=== PATIENT | female | born 1965 | race Caucasian/White ===

== ENCOUNTER 2017-02-02 08:05 | Day surgery (SDC) | payer BC ==
[~2017-02-02 08:05] MED LIST: Lactated Ringers 1,000 ML IV SCH; Lidocaine 1%/Sod Bicarbonate in NS 8.4% 1 ML Syringe PRN; Sodium Chloride 0.9% 10 ML Syringe FLUSH PRN
--- NOTE | 2017-02-02 08:27 | PCM.PREANE ---
Preanesthetic Assessment - Procedure Proposed Procedure: Screening colonoscopy - Anesthesia/Transfusion/Family Hx Anesthesia History: Prior Anesthesia Without Reaction Type of Anesthesia Reaction: Excessive Nausea/Vomiting Family History of Anesthesia Reaction: No Transfusion History: No Prior Transfusion(s) Intubation History: Unknown - Review of Systems General: No Symptoms Pulmonary: No Symptoms Cardiovascular: Other (HLD) Gastrointestinal: No Symptoms Neurological: No Symptoms, Other (brain aneurysm 6 years ago (no deficits)) Other: Reports: Anxiety - Physical Assessment NPO Status Date: 02/01/17 NPO Status Time: 21:30 Pulse: 68 O2 Sat by Pulse Oximetry: 97 Respiratory Rate: 16 Blood Pressure: 148/83 Temperature: 36.3 C Height: 1.68 m Weight: 95 kg ASA Class: 2 Mental Status: Alert & Oriented x3 Airway Class: Mallampati = 1 Dentition: Reports: Normal Dentition Thyro-Mental Finger Breadths: 3 Mouth Opening Finger Breadths: 3 ROM/Head Extension: Full Lungs: Clear to Auscultation, Normal Respiratory Effort Cardiovascular: Regular Rate, Regular Rhythm - Allergies Allergies/Adverse Reactions: Allergies Allergy/AdvReac Type Severity Reaction Status Date / Time No Known Allergies Allergy Verified 02/01/17 15:32 - Blood Blood Available: No Product(s) Available: None - Anesthesia Plan Pre-Op Medication Ordered: None - Acknowledgements Anesthesia Type Planned: MAC Pt an Appropriate Candidate for the Planned Anesthesia: Yes Alternatives and Risks of Anesthesia Discussed w Pt/Guardian: Yes Pt/Guardian Understands and Agrees with Anesthesia Plan: Yes PreAnesthesia Questionnaire HEENT History: Reports: Allergic Rhinitis, Hard of Hearing, Otitis Media Other HEENT History: eustachian tube dysfuction , serous otits media, wears glasses Cardiovascular History: Reports: High Cholesterol, Other (See Below) Other Cardiovascular History: lower leg edema Respiratory History: Reports: None Gastrointestinal History: Reports: Other (See Below) Other Gastrointestinal History: RLQ pain Other Genitourinary History: renal cyst Other OB/BYN History: 2 vaginal deliveries, R ovarian cyst Other Musculoskeletal History: degenerative joint disease Other Neuro History: PErevious Cerebral aneurysm clipping Psychiatric History: Reports: Anxiety, Depression, Other (See Below) Other Psychiatric History: insomnia Endocrine/Metabolic History: Reports: Other (See Below) Other Endocrine/Metabolic History: hot flashes Hematologic History: Reports: None Immunologic History: Reports: None Oncologic (Cancer) History: Reports: None Dermatologic History: Reports: None - Past Surgical History Respiratory Surgical History: Reports: None Female Surgical History: Reports: Hysterectomy, Oophorectomy Musculoskeletal Surgical History: Reports: Knee Replacement, Shoulder Surgery Oncologic Surgical History: Reports: None Dermatological Surgical History: Reports: None - SUBSTANCE USE Smoking Status *Q: Never Smoker Days Per Week of Alcohol Use: 0 Number of Drinks Per Day: 0 Total Drinks Per Week: 0 Recreational Drug Use History: No - HOME MEDS Home Medications: Home Meds Citalopram [Citalopram HBr] 10 mg PO DAILY 05/15/14 [History] Fluticasone Propionate [Flonase] 2 spray NASBOTH DAILY PRN 02/01/17 [History] Loratadine/Pseudoephedrine [Claritin-D 12 Hour] 1 tab PO DAILY PRN 02/01/17 [ History] Multivitamin [Daily Tabitha] 1 tab PO DAILY 02/01/17 [History] Progesterone,Micronized [Progesterone] 1 cap PO DAILY 02/01/17 [History] atorvaSTATin Calcium [Atorvastatin Calcium] 10 mg PO DAILY 02/01/17 [History] - CURRENT (IN HOUSE) MEDS Current Meds: Current Medications Lactated Ringer's (Ringers, Lactated) 1,000 mls @ 125 mls/hr IV ASDIRECTED KHAI Stop: 02/02/17 23:00 Lidocaine/Sodium Bicarbonate (Buffered Lidocaine 1% In Ns 8.4%) 0.25 ml .XX ONETIME PRN PRN Reason: Prior to IV Start Stop: 02/02/17 18:00 Sodium Chloride (Saline Flush) 10 ml FLUSH ASDIRECTED PRN PRN Reason: Keep Vein Open Stop: 02/02/17 18:00
[2017-02-02] MEDS ORDERED: Propofol 200 MG/20 ML SDV ONE ×2 (08:40→09:19)
[2017-02-02] MEDS ORDERED: fentaNYL 100 MCG/2 ML SDV ONE (08:41)
--- NOTE | 2017-02-02 09:13 | PCM.OPNOTE ---
- General Post-Op/Procedure Note Date of Surgery/Procedure: 02/02/17 Operative Procedure(s): Colonoscopy with cold forceps sigmoid polypectomy 2 Findings: 1. Anal tags and internal hemorrhoids 2. 2 diminutive sigmoid polyps Pre Op Diagnosis: Screening colonoscopy Post-Op Diagnosis: 1. Uncomplicated internal hemorrhoids with anal tags. 2. 2 sigmoid diminutive polyps Anesthesia Technique: MAC, Moderate Sedation Primary Surgeon: Marty Smith Pathology: 2 Polyps EBL in mLs: 0 Complications: None Condition: Good Free Text/Narrative:: After adequate IV sedation and analgesia was obtained with monitoring the patient was placed on her left side. Perianal inspection revealed anal tags with internal hemorrhoids. Digital rectal examination was otherwise unremarkable. A lubricated colonoscope was inserted into the rectum and advanced to the cecum without difficulty. The bowel preparation was excellent. The cecum right colon transverse and descending colons were unremarkable. There were no inflammatory changes or mass lesions seen. There were 2 diminutive polyps in the sigmoid colon which were removed with cold forceps. The biopsy areas were hemostatic and the specimens were retrieved. The sigmoid was otherwise unremarkable. The rectum in both views was unremarkable. Photographs were taken for the patient and for the medical record. Air was removed as I finished the procedure which she tolerated well. There were no procedural complications.
[2017-02-02 09:18] VITALS: BP 120/70
--- NOTE | 2017-02-02 09:18 | PCM48HPAN ---
Post Anesthesia Note - EVALUATION WITHIN 48HRS OF ANESTHETIC Vital Signs in Normal Range: Yes Patient Participated in Evaluation: Yes Respiratory Function Stable: Yes Airway Patent: Yes Cardiovascular Function Stable: Yes Hydration Status Stable: Yes Pain Control Satisfactory: Yes Nausea and Vomiting Control Satisfactory: Yes Mental Status Recovered: Yes - COMMENTS/OBSERVATIONS Free Text/Narrative:: no c/o, rests quietly, VSS
== END 2017-02-02 09:45 | disposition home or self-care (01) ==
LOC: JD.SDS 08:05
PROVIDERS: ATTEND Surgery
DX: Z12.11 Encounter for screening for malignant neoplasm of colon (principal); D12.5 Benign neoplasm of sigmoid colon; K64.4 Residual hemorrhoidal skin tags; K64.8 Other hemorrhoids; F41.9 Anxiety disorder, unspecified; E78.00 Pure hypercholesterolemia, unspecified; F32.9 Major depressive disorder, single episode, unspecified; Z79.899 Other long term (current) drug therapy; Z90.710 Acquired absence of both cervix and uterus; Z90.721 Acquired absence of ovaries, unilateral; Z96.659 Presence of unspecified artificial knee joint; Z98.890 Other specified postprocedural states
CPT/HCPCS: 45380; J3010; J7120; 00810; J2704

== ENCOUNTER 2018-02-02 06:18 | Day surgery (SDC) | payer BC ==
[~2018-02-02 06:18] MED LIST changes: +Lidocaine 1%/Sod Bicarbonate in NS 8.4% 1 ML Syringe IDERM PRN; -Lidocaine 1%/Sod Bicarbonate in NS 8.4% 1 ML Syringe PRN
[2018-02-02] MEDS ORDERED: Lidocaine 1% 4 ML ONE (06:25)
[2018-02-02] MEDS ORDERED: Midazolam 1 MG/ML 2 ML SDV ONE (06:26)
[2018-02-02] MEDS ORDERED: Propofol 200 MG/20 ML SDV ONE (06:26)
[2018-02-02] MEDS ORDERED: fentaNYL 100 MCG/2 ML SDV ONE (06:26)
--- NOTE | 2018-02-02 06:42 | PCM.PREANE ---
Preanesthetic Assessment - Anesthesia/Transfusion/Family Hx Anesthesia History: Prior Anesthesia Without Reaction Type of Anesthesia Reaction: Other (see below) (one time felt crappy after) Family History of Anesthesia Reaction: No Transfusion History: No Prior Transfusion(s) Intubation History: Unknown - Review of Systems General: No Symptoms Pulmonary: No Symptoms Cardiovascular: No Symptoms Gastrointestinal: No Symptoms Neurological: No Symptoms Other: Reports: Anxiety - Physical Assessment NPO Status Date: 02/01/18 NPO Status Time: 22:00 Pulse: 66 O2 Sat by Pulse Oximetry: 97 Respiratory Rate: 16 Blood Pressure: 153/84 Temperature: 97 F Height: 5 ft 6 in Weight: 98.883 kg ASA Class: 2 Mental Status: Alert & Oriented x3 Airway Class: Mallampati = 1 Dentition: Reports: Normal Dentition Thyro-Mental Finger Breadths: 3 Mouth Opening Finger Breadths: 3 ROM/Head Extension: Full Lungs: Clear to Auscultation, Normal Respiratory Effort Cardiovascular: Regular Rate, Regular Rhythm - Lab Values: Laboratory Last Values MRSA (PCR) Negative 01/31/18 10:07 - Allergies Allergies/Adverse Reactions: Allergies Allergy/AdvReac Type Severity Reaction Status Date / Time No Known Allergies Allergy Verified 02/01/18 13:12 - Blood Blood Available: No - Acknowledgements Anesthesia Type Planned: MAC Pt an Appropriate Candidate for the Planned Anesthesia: Yes Alternatives and Risks of Anesthesia Discussed w Pt/Guardian: Yes Pt/Guardian Understands and Agrees with Anesthesia Plan: Yes PreAnesthesia Questionnaire HEENT History: Reports: Allergic Rhinitis, Hard of Hearing, Otitis Media Other HEENT History: eustachian tube dysfuction , serous otits media, wears glasses Cardiovascular History: Reports: High Cholesterol, Other (See Below) Respiratory History: Reports: None Gastrointestinal History: Reports: Other (See Below) Other Genitourinary History: renal cyst, hot flashes, vaginal atrophy, vaginal discharge 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 (See Below) Other OB/BYN History: 2 vaginal deliveries, R ovarian cyst, vaginal candidiasis Musculoskeletal History: Reports: Other (See Below) Other Musculoskeletal History: degenerative joint disease, muscle pain, knee surgeries, right shoulder surgery Other Neuro History: previous Cerebral aneurysm clipping, headaches Psychiatric History: Reports: Anxiety, Depression, Other (See Below) Other Psychiatric History: insomnia Endocrine/Metabolic History: Reports: Obesity/BMI 30+, Other (See Below) Other Endocrine/Metabolic History: hot flashes Hematologic History: Reports: None Immunologic History: Reports: None Oncologic (Cancer) History: Reports: None Dermatologic History: Reports: Other (See Below) Other Dermatologic History: rash - Past Surgical History Head Surgeries/Procedures: Reports: Other (See Below) (aneurysm repair) Respiratory Surgical History: Reports: None GI Surgical History: Reports: Colonoscopy Female Surgical History: Reports: Hysterectomy, Oophorectomy Endocrine Surgical History: Reports: None Neurological Surgical History: Reports: None Musculoskeletal Surgical History: Reports: Arthroscopic Procedure, Shoulder Surgery Oncologic Surgical History: Reports: None Dermatological Surgical History: Reports: None - SUBSTANCE USE Smoking Status *Q: Never Smoker Tobacco Use Within Last Twelve Months: No Second Hand Smoke Exposure: No Days Per Week of Alcohol Use: 1 Recreational Drug Use History: No - HOME MEDS Home Medications: Home Meds Fluticasone Propionate [Flonase] 2 spray NASBOTH DAILY PRN 02/01/17 [History] Loratadine/Pseudoephedrine [Claritin-D 12 Hour] 1 tab PO DAILY PRN 02/01/17 [ History] Progesterone,Micronized [Progesterone] 1 cap PO DAILY 02/01/17 [History] Citalopram Hydrobromide [Celexa] 10 mg PO DAILY 02/01/18 [History] Estriol 1 dose VAG Q72H 02/01/18 [History] LORazepam 0.25 - 0.5 mg PO BID PRN 02/01/18 [History] Acetaminophen/HYDROcodone [Ball 325-5 MG] 1 - 2 tab PO Q6H PRN #20 tablet 02/02 [Rx] - CURRENT (IN HOUSE) MEDS Current Meds: Current Medications Lactated Ringer's (Ringers, Lactated) 1,000 mls @ 125 mls/hr IV ASDIRECTED KHAI Stop: 02/02/18 18:00 Lidocaine/Sodium Bicarbonate (Buffered Lidocaine 1% In Ns 8.4%) 0.25 ml IDERM ONETIME PRN PRN Reason: Prior to IV Start Stop: 02/02/18 18:00 Sodium Chloride (Saline Flush) 10 ml FLUSH ASDIRECTED PRN PRN Reason: Keep Vein Open Stop: 02/02/18 18:00 Discontinued Medications Fentanyl (Sublimaze) Confirm Administered Dose 100 mcg .ROUTE .STK-MED ONE Stop: 02/02/18 06:27 Lidocaine HCl (Xylocaine-Mpf 1%) Confirm Administered Dose 4 mls @ as directed .ROUTE .STK-MED ONE Stop: 02/02/18 06:26 Midazolam HCl (Versed 1 Mg/Ml) Confirm Administered Dose 2 mg .ROUTE .STK-MED ONE Stop: 02/02/18 06:27 Propofol (Diprivan 20 Ml) Confirm Administered Dose 200 mg .ROUTE .STK-MED ONE Stop: 02/02/18 06:27
[2018-02-02] MEDS ORDERED: Lidocaine 1% 30 ML SDV ONE (06:44)
[2018-02-02] MEDS ORDERED: Ondansetron 4 MG/2 ML SDV IVPUSH PRN (07:23)
[2018-02-02] MEDS: Bupivacaine 0.25% 10 ML SDV ONE ×3 (07:30→07:41)
[2018-02-02] MEDS: Triamcinolone Acetonide 40 MG/ML 1 ML MDV ONE ×2 (07:40→07:41)
[2018-02-02 08:00] VITALS: BP 134/74
--- NOTE | 2018-02-02 08:00 | PCM48HPAN ---
Post Anesthesia Note - EVALUATION WITHIN 48HRS OF ANESTHETIC Vital Signs in Normal Range: Yes Patient Participated in Evaluation: Yes Respiratory Function Stable: Yes Airway Patent: Yes Cardiovascular Function Stable: Yes Hydration Status Stable: Yes Pain Control Satisfactory: Yes Nausea and Vomiting Control Satisfactory: Yes Mental Status Recovered: Yes Pulse Rate: 64 SaO2: 96 Resp Rate: 16 Temperature: 97 F Blood Pressure: 134/74
--- NOTE | 2018-02-09 06:59 | PCM.OPNOTE ---
- General Post-Op/Procedure Note Date of Surgery/Procedure: 02/02/18 Operative Procedure(s): right thumb, middle, ring finger a1 tunde releases with bilateral thumb carpometacarpal joint injections Pre Op Diagnosis: right thumb, middle and ring finger stenosing tenosynovitis Post-Op Diagnosis: Same Anesthesia Technique: Local, MAC Primary Surgeon: Wilbur Thapa Anesthesia Provider: Anahy Aparicio Rn Dermatology: Zakia Pandey in mLs: 5 Complications: None Condition: Good
--- NOTE | 2018-02-13 10:29 | OR ---
DATE OF OPERATION: 02/02/2018 SURGEON: Wilbur Thapa MD OPERATION PERFORMED: Right thumb, middle, and ring finger A1 tunde releases; bilateral thumb carpometacarpal joint injection. 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 ANESTHESIA: Local MAC. ANESTHESIA PROVIDER: Anahy Aparicio CRNA. GLOBAL POSITION SYSTEM TECHNICIAN: Zakia Pandey PA-C. ESTIMATED BLOOD LOSS: 5 mL. COMPLICATIONS: None. CONDITION: Stable. DESCRIPTION OF PROCEDURE: The patient was identified in the preoperative holding area. Proper site was marked and identified by the surgeon. The patient was taken back to the operating theater where after adequate anesthesia, the patient's right upper extremity was sterilely prepped and draped in the usual sterile fashion. OR time-out was performed. The patient did not receive antibiotic and not indicated for soft tissue hand procedure. At this time, the right upper extremity was exsanguinated. An Esmarch was used as a tourniquet on the forearm. Lidocaine 1% without epinephrine and 0.25% Marcaine without epinephrine used to anesthetize the incisional sites over the A1 pulleys of the thumb, middle, and ring fingers. At this time, incision was then made over the ring finger. Blunt dissection was taken down to the A1 tunde. Retractors were placed into the radial ulnar side to protect the neurovascular bundles. [place] blade was then used to resect the A1 tunde. It was found to be adequately released both proximally and distally. At this time, attention was turned to the middle finger. Again, incision was made over the A1 tunde and again protected the neurovascular bundle and A1 tunde was released using a [place] blade. The A1 tunde was then released in a similar fashion. At this time, they were all found to be adequately released. There were no signs of tendinous adhesions and all these were adequately irrigated with normal saline and nylon suture was used for closure of the skin. At this time, bilateral thumb carpometacarpal joint injections were done using 1 mL of 40 mg Kenalog and 1 mL of 0.25% Marcaine. She tolerated all these procedures well and sent to PACU in stable condition. MMODAL /[id number]
== END 2018-02-02 08:30 | disposition home or self-care (01) ==
LOC: JD.SDS 06:18
PROVIDERS: ATTEND Orthopaedic Surgery
DX: M65.841 Other synovitis and tenosynovitis, right hand (principal); M19.042 Primary osteoarthritis, left hand; M19.041 Primary osteoarthritis, right hand; M65.311 Trigger thumb, right thumb; M65.331 Trigger finger, right middle finger; M65.341 Trigger finger, right ring finger; E66.9 Obesity, unspecified; Z68.37 Body mass index [BMI] 37.0-37.9, adult; H91.90 Unspecified hearing loss, unspecified ear; E78.00 Pure hypercholesterolemia, unspecified; F41.9 Anxiety disorder, unspecified; F32.9 Major depressive disorder, single episode, unspecified; J30.9 Allergic rhinitis, unspecified; Z79.899 Other long term (current) drug therapy
CPT/HCPCS: 20600; 26055; 87641; J2250; J2704; J3010; J3301; J3490; J7120; 01810; J2001